=== PATIENT | female | born 1990 | race Caucasian/White ===

== ENCOUNTER 2017-09-14 15:14 | Emergency (ER) | payer BC, MEDICAID ==
[~2017-09-14] VITALS: Ht 160 cm; Wt 117.9 kg
[2017-09-14] MEDS ORDERED: ACETAMINOPHEN 325 MG TABLET PO ONE (16:20)
[2017-09-14] MEDS ORDERED: IBUPROFEN 800 MG TABLET PO ONE (16:30)
[2017-09-14] MEDS ORDERED: IV NS 1000 ML 1,000 ML IV ONE ×2 (16:30→18:00)
[2017-09-14 16:34] LABS: *BILIRUBIN,URIN NEGATIVE (NEGATIVE); *BLOOD, URINE 1+ (NEGATIVE); *CLARITY,URINE CLEAR (CLEAR); *COLOR,URINE YELLOW (YELLOW); *KETONES,URINE TRACE (NEGATIVE); *PROTEIN,URINE 2+ (NEGATIVE); LEUKOCYTE ESTERASE ,URINE 1+ (NEGATIVE); NITRITE, URINE NEGATIVE (NEGATIVE); PH,URINE 6.5 (5.0-8.0); UGLUCOSE NEGATIVE (NEGATIVE)
[2017-09-14] MEDS ORDERED: ACETAMINOPHEN ES 500 MG TABLET ONE (16:47)
[2017-09-14] MEDS ORDERED: IBUPROFEN 800 MG TABLET ONE (16:47)
[2017-09-14 16:49] LABS: *URINE HCG, QUAL NEGATIVE (NEGATIVE)
[2017-09-14 16:51] LABS: CREATININE 1.2 mg/dL (0.6-1.3)
[2017-09-14 16:52] LABS: BACTERIA,URINE MODERATE /HPF (NONE SEEN); SQUAMOUS EPITHELIAL CELL,UR FEW /HPF (NONE SEEN)
[2017-09-14 16:53] LABS: BASOPHILS # (AUTO) 0.1 K/uL (0.0-8.0); BASOPHILS % (AUTO) 0.6 % (0.0-2.0); HEMATOCRIT 40.3 % (31.2-41.9); HEMOGLOBIN 13.7 g/dL (10.9-14.3); LYMPHOCYTES # (AUTO) 0.5 K/uL (20.0-40.0); LYMPHOCYTES % (AUTO) 4.2 % (20.5-51.5); MEAN CORPUSCULAR HEMOGLOBIN 29.8 uug (24.7-32.8); MEAN CORPUSCULAR HGB CONC 34 g/dL (32.3-35.6); MEAN CORPUSCULAR VOLUME 87.7 fL (75.5-95.3); MONOCYTES # (AUTO) 1.3 K/uL (2.0-10.0); MONOCYTES % (AUTO) 11.4 % (0.0-11.0); NEUTROPHILS # (AUTO) 9.8 K/uL (1.8-8.9); NEUTROPHILS % (AUTO) 83.8 % (38.5-71.5); PLATELET COUNT (AUTO) 287 K/uL (179-408); WHITE BLOOD COUNT (AUTO) 11.6 K/uL (3.8-11.8)
[2017-09-14 16:57] LABS: BILIRUBIN,TOTAL 0.7 mg/dL (0.2-1.0); TOTAL PROTEIN, SERUM 8.2 g/dL (6.4-8.2)
[2017-09-14] MEDS ORDERED: CEFTRIAXONE 1 G in IV DEXTROSE 5% 50 ML IV ONE (18:00)
[2017-09-14] MEDS ORDERED: CEFTRIAXONE 1 G VIAL ONE (18:18)
--- NOTE | 2017-09-14 18:55 | NUR ---
MSE COMPLETED, ALL MEDS COMPLETED, 2L 0.9NS INFUSED, PT HAD IV D/C'D, ACI/RX X1 GIVEN. PT AMBULATYED W/O DIFF/TOOK ALL BELONGINGS.
[2017-09-14 18:56] VITALS: BP 128/74
== END 2017-09-14 18:57 | disposition home or self-care (01) ==
LOC: ER 15:14
DX: R00.0 Tachycardia, unspecified (principal); N39.0 Urinary tract infection, site not specified; R50.9 Fever, unspecified; Z88.0 Allergy status to penicillin; M54.5 Low back pain
CPT/HCPCS: 36415; 71010; 80053; 81001; 84703; 85025; 87400; 93005; 96361; 96365; 99285; A4663; J0696; J7030 ×2; J7060